=== PATIENT | female | born 1955 | race Two or more races ===

== ENCOUNTER 2016-08-21 19:36 | Emergency (ER) | payer OTHER ==
[~2016-08-21] VITALS: Ht 154.9 cm; Wt 73.0 kg
[2016-08-21] MEDS ORDERED: IBUPROFEN600 MG ORAL (21:17)
[2016-08-21] MEDS ORDERED: TRAMADOL HCL50 MG ORAL (21:17)
[2016-08-21 21:28] VITALS: BP 148/72
--- NOTE | 2016-08-21 22:20 | Emergency Room Report ---
History of Present Illness General Chief Complaint: Lower Extremity Injury Source: Patient Present Illness HPI The patient is a 61-year-old female presenting with left knee pain which began yesterday. The patient states that she fell straight onto the left knee after tripping. The patient states pain is an 8/10 dull ache and does not radiate from the knee. Worse with walking. She denies previous injury to the area. She denies any numbness or tingling. She denies calf pain and denies other symptoms including N, V, F, chills, SOB Allergies: Coded Allergies: No Known Allergies (Unverified , 08/21/16) Patient History Past Medical History: see triage record Pertinent Family History: none Reviewed Nursing Documentation: PMH: Agreed, PSxH: Agreed Nursing Documentation-PMH Past Medical History: No History, Except For Hx Hypertension: Yes - Hyperlipidemia Review of Systems All Other Systems: negative except mentioned in HPI Physical Exam Vital Signs Date Time Temp Pulse Resp B/P Pulse Ox O2 Delivery O2 Flow Rate FiO2 08/21/16 20:24 98.2 71 14 148/72 97 Room Air Sp02 EP Interpretation: reviewed, normal General Appearance: no apparent distress, alert, GCS 15, non-toxic Head: normocephalic, atraumatic Eyes: bilateral eye PERRL, bilateral eye normal inspection ENT: hearing grossly normal, normal pharynx, no angioedema, normal voice Neck: full range of motion, supple/symm/no masses Musculoskeletal: no calf tenderness, decreased range of motion - L knee, swelling - Anterior L knee, tender - Anterior L knee Neurologic: alert, oriented x3, responsive, motor strength/tone normal, sensory intact, speech normal Psychiatric: judgement/insight normal, memory normal, mood/affect normal, no suicidal/homicidal ideation Skin: other - ecchymosis of the L knee Procedures Splinting Splinting : Consent: Verbal Location: L knee Pre-Made Type: knee immobilizer Pre-Proc Neuro Vasc Exam: normal Post-Proc Neuro Vasc Exam: normal Patient Tolerated: Well Complications: None Medical Decision Making PA Attestation Dr. Tolliver is my supervising physician. Patient management was discussed with my supervising physician Diagnostic Impression: Primary Impression: Contusion of knee, left ER Course The patient is a 61-year-old female presenting with left knee pain Ddx considered include but not limited to sprain/strain, fracture, contusion PE: NAD Left knee: There is an effusion and tenderness to palpation over the anterior knee. Overlying ecchymosis. Limited active range of motion. No laxity. Extremity knee reveals no fracture. A knee immobilizer is placed and she'll be discharged home with RICE instructions. She needs to FU with PMD. ER precautions given Other X-Ray Diagnostic Results Other X-Ray Diagnostic Results : X-Ray ordered: L knee # of Views/Limited Vs Complete: 3 View Indication: Pain EP Interpretation: Yes Interpretation: no fractures, other - + swelling Impression: Other - No fracture Interpreting ER Provider: Dr. Tolliver PA Scribe Text I am acting as scribe for my supervising physician. My supervising physician's interpretation of the L knee xrays are there are no fractures, dislocations or soft tissue swelling. Last Vital Signs Date Time Temp Pulse Resp B/P Pulse Ox O2 Delivery O2 Flow Rate FiO2 08/21/16 21:28 98.3 14 148/72 97 Room Air 08/21/16 20:24 71 Status: improved Disposition: HOME, SELF-CARE Condition: Improved Scripts Tramadol Hcl* (ULTRAM*) 50 Mg Tablet 50 MG ORAL Q6H Y for For Pain, #10 TAB 0 Refills Prov: JOSEPH LITTLE.A. 08/21/16 Ibuprofen* (MOTRIN*) 600 Mg Tablet 600 MG ORAL Q8H Y for For Pain, #30 TAB 0 Refills Prov: JOSEPH LITTLE P.A. 08/21/16 Patient Instructions: Maribelusion, DARNELL for Routine Care of Injuries Additional Instructions: I discussed my findings with the patient. All questions and concerns have been answered. Treatment and medication compliance have been addressed. I advised the patient that they need to follow up with PMD in 3-5 days. Return to ED if pain remains or worsens, numbness or tingling occurs, new rash is noticed, fever is noticed, or if needed for any reason. Patient verbalized understanding of discharge instructions. JOSEPH LITTLE Aug 21, 2016 22:20
--- NOTE | 2016-08-22 11:10 | Diagnostic Imaging Report ---
Indication: PAIN status post fall Technique: 3 views of the left knee Comparison: None Findings:There is marked cutaneous soft tissue swelling anterior to the patella. No definite effusion. No acute fractures. No dislocations. Joint spaces are preserved. Extensive masslike opacities are seen in the subcutaneous fat below the knee level, likely representing varicose veins Impression:Cutaneous prepatellar soft tissue swelling, probably reflecting contusion given stated clinical history of recent trauma Opacities within the subcutaneous fat of the leg, likely venous varicosities
== END 2016-08-21 21:29 | disposition home or self-care (01) ==
LOC: EMR 20:15
DX: S80.02XA Contusion of left knee, initial encounter (principal); W01.0XXA Fall on same level from slipping, tripping and stumbling without subsequent striking against object, initial encounter; Y93.9 Activity, unspecified; Y92.9 Unspecified place or not applicable; I10 Essential (primary) hypertension
CPT/HCPCS: 29530; 99284